=== PATIENT | male | born 1945 | race Caucasian/White ===

== ENCOUNTER 2018-09-21 12:48 | Observation (INO) | payer MEDICARE, BC ==
[2018-09-21 13:49] LABS: #Basophils 0.1 thou/uL (0.0-0.2); #Eosinphils 0.1 thou/uL (0.0-0.7); #Lymphocytes 1.5 thou/uL (1.20-3.40); #Monocytes 0.6 thou/uL (0.11-0.59); #Neutrophils 4.6 thou/uL (1.40-6.50); %Basophils 1.1 % (0.0-1.0); %Lymphocytes 22.2 % (21.0-51.0); %Neutrophils 66.8 % (42.0-75.0); Hemoglobin 11.7 g/dL (14.0-18.0); Mean Corpuscular Hemoglobin 21.1 pg (27.0-31.0); Mean Corpuscular Volume 70.1 fL (78.0-98.0); Mean Platelet Volume 11.4 fL (7.4-10.4); Platelet Count 229 thou/uL (130-400); RBC Distribution Width 16.2 % (11.5-14.5); Red Blood Cell (RBC) Count 5.56 mill/uL (4.70-6.10); White Blood Cell (WBC) Count 6.9 thou/uL (4.8-10.8)
--- NOTE | 2018-09-21 14:00 | RAD ---
PORTABLE CHEST 1 VIEW: DATE: 09/21/2018. TIME: 1:41 p.m. HISTORY: Syncope. FINDINGS: The heart size is normal. The lungs are expanded without focal areas of consolidation, pneumothorace s, or pleural effusions. IMPRESSION: No radiographic evidence of acute cardiopulmonary process. POS: [facility]
[2018-09-21 14:03] LABS: ALT (SGPT) 24 U/L (8-55); AST (SGOT) 31 U/L (5-34); Albumin 5.1 g/dL (3.4-4.8); Alkaline Phosphatase 76 U/L (40-150); Anion Gap 15 mmol/L (10-20); BUN (Urea Nitrogen) 18 mg/dL (8.4-25.7); Bilirubin, Total 0.4 mg/dL (0.2-1.2); Calc. Creatinine Clearance 0 mL/min (70-130); Calcium 9.8 mg/dL (7.8-10.44); Carbon Dioxide 25 mmol/L (23-31); Chloride 104 mmol/L (98-107); Estimated GFR-MDRD 78; Globulin 3.2 g/dL (2.4-3.5); Glucose 105 mg/dL (83-110); Potassium 4.1 mmol/L (3.5-5.1); Protein, Total 8.3 g/dL (5.8-8.1); Sodium 140 mmol/L (136-145)
[2018-09-21 14:10] LABS: Anisocytosis SLIGHT = 6-15 cells (100X) (0-5/hpf); Hypochromia SLIGHT = 6-15 cells (100X) (0-5/hpf); MDiff Complete? YES; Microcytosis SLIGHT = 6-15 cells (100X) (0-5/hpf); Ovalocytes SLIGHT = 2-5 cells (100X) (0-1/hpf); Platelet Morphology Comment Appears Adequate; Polychromasia SLIGHT = 2-3 cells (100X) (0-2/hpf)
[2018-09-21] MEDS ORDERED: Zolpidem Tartrate 5 MG TAB PO PRN (16:01)
[2018-09-21] MEDS ORDERED: Acetaminophen 325 MG TAB PO PRN ×2 (16:01→17:19)
[2018-09-21] MEDS ORDERED: Ondansetron ODT 4 MG TAB PO PRN (16:01)
--- NOTE | 2018-09-21 16:58 | HP ---
PRIMARY CARE PROVIDER: Dr. Whalen. 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 He hit head on the wall. He had no aura. When he was on the floor, he was sweating. His mentation rapidly came back to normal. His said he was pale. No lightheadedness. No headache. No focal weakness. He notes he had double donated blood in July. I called the food and beverage operations manager. His blood pressure was like 94 systolic. He waited, went to see Dr. Whalen, this morning, and referred him here. PAST MEDICAL HISTORY: Dyslipidemia, Lipitor 10 mg every other day. ALLERGIES: TO FENTANYL. PAST SURGICAL HISTORY: Radical prostatectomy for cancer 10 years ago, right total hip replacement. FAMILY HISTORY: No coronary artery disease. Mother in her 90s of diabetes. Father in his 90s. . at bedside. Full code status. is surrogate decision maker. No tobacco. No alcohol. He works as a dentist. REVIEW OF SYSTEMS: Other than the PI, no headaches, dizziness, or fainting. HEENT: Eyes, no double vision, blurred vision, or flashing lights. Ear, nose, and throat, no ear pain or drainage. No nasal bleeding. No trouble swallowing. CARDIAC: No chest pain, orthopnea, or paroxysmal nocturnal dyspnea. RESPIRATION: No cough, wheezing, or asthma. GASTROINTESTINAL: No nausea, vomiting, diarrhea, or constipation. No blood in his stool. GENITOURINARY: No hematuria, dysuria, or nocturia. MUSCULOSKELETAL: No pain or swelling in his arms or legs. NEUROLOGICAL: No strokes, seizures, or focal weakness. PSYCHIATRIC: No anxiety or depression. SKIN: Bruises easily, but does not take any aspirin. HEME/LYMPH: No tender or swollen lymph nodes in axilla, inguinal, or cervical area. PHYSICAL EXAMINATION: GENERAL: He is alert, pleasant, cooperative gentleman. VITAL SIGNS: Blood pressure 133/64, pulse 52, respirations 16, and O2 saturation 99 on room air. HEENT: Examination of his head, eyes, ears, nose, and throat revealed pupils are equal, round, reactive to light. Extraocular movements are intact. Sclerae white. Tympanic membranes are clear. Nose is clear. Oral mucous membranes are wet. Dental hygiene is good. NECK: Supple without jugular venous distention, adenopathy, or thyromegaly. CHEST: Clear to auscultation and percussion. HEART: Regular rate and rhythm. First and second heart sounds are clear. There are no appreciated murmurs or gallops. ABDOMEN: Soft. Bowel sounds are normal. There were no polyps or hepatosplenomegaly. No mass. No rebound. No bruits. EXTREMITIES: No cyanosis, clubbing, or edema. PULSES: Carotid, radial, femoral, and dorsalis pedis pulses are intact. SKIN: Warm and dry without bruises or rash. HEME/LYMPH: No tender or swollen lymph nodes in axilla, inguinal, or cervical area. NEUROLOGIC: Cranial nerves 2 through 12 are intact. Deep tendon reflexes are symmetric. Moves all extremities. DIAGNOSTIC DATA: EKG, sinus bradycardia at 50 to 60, otherwise normal, reviewed by me. Chest x-ray, no cardiomegaly, CHF, or infiltrate reviewed by me. LABORATORY DATA: Comprehensive metabolic profile normal. Cardiac enzymes normal. CBC; white count 6.9, hemoglobin 11.7 with microcytic microchromic indices, and platelet count 229,000. ADMITTING DIAGNOSES: 1. Syncope. 2. Dyslipidemia. 3. Sinus bradycardia. 4. Iron deficiency anemia secondary to multiple blood donations. PLAN: 1. Telemetry. 2. Echocardiogram will be done. 3. Thyroid function test will be done. 4. Repeat CBC, basic metabolic profile in the morning. 5. Iron and iron-binding capacity. 6. Start ferrous sulfate 325 mg p.o. b.i.d. daily for 6 months. Job ID: [id number]
[2018-09-21] MEDS ORDERED: Ondansetron PF 4 MG/2 ML Vial IVP PRN (17:19)
[2018-09-21] MEDS ORDERED: Sodium Chloride 0.9% 1,000 ML IV SCH (17:20)
[2018-09-21 17:23] VITALS: BMI 25.9
[2018-09-21 17:34] LABS: Free T4 (Free Thyroxine) 1.04 ng/dL (0.70-1.48); Thyroid Stimulating Hormone 1.1419 uIU/mL (0.35-4.94)
[2018-09-22 07:11] LABS: #Basophils 0.1 thou/uL (0.0-0.2); #Eosinphils 0.2 thou/uL (0.0-0.7); #Lymphocytes 1.8 thou/uL (1.20-3.40); #Monocytes 0.6 thou/uL (0.11-0.59); #Neutrophils 3.5 thou/uL (1.40-6.50); %Basophils 1.6 % (0.0-1.0); %Eosinophils 3.9 % (0.0-10.0); %Lymphocytes 28.9 % (21.0-51.0); %Monocytes 9.4 % (0.0-10.0); %Neutrophils 56.2 % (42.0-75.0); Hemoglobin 10.5 g/dL (14.0-18.0); Mean Corpuscular HGB CONC 30.6 g/dL (32.0-36.0); Mean Corpuscular Hemoglobin 21.5 pg (27.0-31.0); Mean Corpuscular Volume 70.5 fL (78.0-98.0); Mean Platelet Volume 11.5 fL (7.4-10.4); Platelet Count 192 thou/uL (130-400); RBC Distribution Width 16.2 % (11.5-14.5); Red Blood Cell (RBC) Count 4.89 mill/uL (4.70-6.10); White Blood Cell (WBC) Count 6.2 thou/uL (4.8-10.8)
[2018-09-22 07:33] LABS: Anion Gap 13 mmol/L (10-20); BUN (Urea Nitrogen) 12 mg/dL (8.4-25.7); Calc. Creatinine Clearance 84 mL/min (70-130); Carbon Dioxide 24 mmol/L (23-31); Chloride 104 mmol/L (98-107); Estimated GFR-MDRD 90; Glucose 118 mg/dL (83-110); Iron 28 ug/dL (65-175); Iron Binding Capacity, Total 411 mcg/dL (261-462); Potassium 3.9 mmol/L (3.5-5.1); Sodium 137 mmol/L (136-145)
[2018-09-22 11:49] VITALS: BP 127/60; TEMP 97.7
--- NOTE | 2018-09-23 02:07 | DIS ---
DATE OF ADMISSION: 09/21/2018 DATE OF DISCHARGE: 09/22/2018 This is Gogo Ivory PA-C dictating a report for Roya Contreras MD. ALLERGIES: NO KNOWN DRUG ALLERGIES. CHIEF COMPLAINT: Syncope. FINAL DIAGNOSES: 1. Vasovagal syncope, resolved. 2. Chronic iron deficiency anemia, hemoglobin stable. 3. Asymptomatic sinus bradycardia. 4. Hyperlipidemia. PROCEDURES PERFORMED: None. LABORATORY RESULTS: White blood cell count 6.2, RBC 4.89, hemoglobin 10.5, hematocrit 34.5, MCV 70.5, platelet count 192. Sodium 137, potassium 3.9, chloride 104, carbon dioxide 24, anion gap 13, BUN 12, creatinine 0.84, estimated GFR 90. Liver function tests within normal limits. Troponin less than 0.010. Albumin 5.1. Free T4 of 1.04, free T3 of 2.3, TSH 1.14. Iron 28, TIBC 411. IMAGING RESULTS: Echocardiogram showed normal left ventricular size and function with estimated EF of 60% to 65%, mild TR, normal pulmonary artery pressure. Chest x-ray showed no radiographic evidence of any acute cardiopulmonary process. CONSULTATIONS: None. HOSPITAL COURSE: The patient is a very pleasant 72-year-old male with past medical history significant only for hyperlipidemia, who presented to the hospital after suffering a syncopal episode at home. The patient had been in his usual state of health, but when he got up out of bed, he experienced fairly severe leg cramps. Shortly thereafter, the patient experienced a syncopal episode. He reports no presyncopal symptoms. He had no aura, no dizziness, no palpitations. He regained conscious very quickly thereafter. The patient's reported that he was pale and diaphoretic at that time. The patient's did call the EMT to their house. The patient preferred to go see his primary care physician, Dr. Whalen. Dr. Whalen referred the patient back to the ER for further workup and treatment. The patient states that he has felt very well since his arrival. His workup here has been negative. His EKG shows normal sinus rhythm, with ventricular rate in the 50s. This is a known finding for this patient. He is very active and has never had any prior syncopal events, shortness of breath, or dizziness. His echocardiogram is normal. He has ambulated the halls and around his room without issue today. Regarding his anemia, his hemoglobin is stable from back in 2013. He does give blood on a regular basis. He has declined to take iron supplements regularly in the past. PHYSICAL EXAMINATION: VITAL SIGNS: Blood pressure 127/60, pulse 67, O2 saturation 100% on room air. GENERAL: This is a well-appearing male, who actually appears younger than his stated age. Resting comfortably. No respiratory distress. HEENT: Atraumatic and normocephalic. Eye movement intact. NECK: Supple. No lymphadenopathy. No JVD. No carotid bruits. RESPIRATORY: Regular respiratory rate and pattern. Clear to auscultation bilaterally. No rhonchi, wheezes, or crackles. CV: S1 and S2. Regular rhythm, mildly bradycardic. There are no murmurs, rubs, or gallops. GI: Soft, nontender, normal bowel sounds. PERIPHERAL VASCULAR: No lower extremity pitting edema. +2 DP pulses bilaterally. MUSCULOSKELETAL: No joint effusion or swelling. NEUROLOGIC: Cranial nerves 2 through 12 are intact. The patient is nonfocal. SKIN: Warm and dry. No rashes. CONDITION AT DISCHARGE: Stable. DISCHARGE MEDICATIONS: He will continue Lipitor 10 mg daily. New prescription for ferrous sulfate 325 mg b.i.d. sent to his pharmacy. DISCHARGE DISPOSITION: Home. PLAN: The patient will follow up with his PCP, Dr. Whalen. He will continue iron supplement and have his iron levels and CBC rechecked again with his PCP in about 3 months. He will return to the ER with any further symptoms. He has been educated and counseled on the nature of vasovagal syncope. All questions answered to the patient's satisfaction. Care was discussed with Dr. Contreras, who agrees with the plan as above. Job ID: [id number]
== END 2018-09-22 14:08 | disposition home or self-care (01) ==
LOC: ERS 12:48 → ERHOLD 14:24 → 2SW 17:14
PROVIDERS: ADMIT Internal Medicine; ATTEND Internal Medicine
DX: R55 Syncope and collapse (principal); R00.1 Bradycardia, unspecified; D50.0 Iron deficiency anemia secondary to blood loss (chronic); E78.5 Hyperlipidemia, unspecified; Z79.899 Other long term (current) drug therapy; Z88.5 Allergy status to narcotic agent
CPT/HCPCS: 71045; 80048; 83540; 83550; 84439; 84481; 84484; 85025; 93005; 93306; 99285; G0378 ×2; 36415; 80053; 84443